=== PATIENT | female | born 1950 | race Caucasian/White ===

== ENCOUNTER 2016-12-23 21:03 | Inpatient (IN) | payer MEDICARE ==
[~2016-12-23] VITALS: Ht 157.5 cm; Wt 63.5 kg
[2016-12-24 00:27] LABS: HEMOGLOBIN 12.1 gm/dl (12.3-15.3); RED BLOOD COUNT 4.23 M/UL (4.00-5.10); WHITE BLOOD COUNT 15.7 K/UL (4.5-11.0)
[2016-12-24 00:46] LABS: BUN/CREATININE RATIO 10 (0-10)
[2016-12-24 08:21] LABS: HEMOGLOBIN 10.7 gm/dl (12.3-15.3); WHITE BLOOD COUNT 15.4 K/UL (4.5-11.0)
[2016-12-24 08:24] LABS: RED BLOOD COUNT 3.74 M/UL (4.00-5.10)
[2016-12-24 08:40] LABS: BUN/CREATININE RATIO 10 (0-10)
[2016-12-25 04:26] LABS: HEMOGLOBIN 9.2 gm/dl (12.3-15.3)
[2016-12-25 04:33] LABS: RED BLOOD COUNT 3.28 M/UL (4.00-5.10); WHITE BLOOD COUNT 11.2 K/UL (4.5-11.0)
[2016-12-25 04:46] LABS: BUN/CREATININE RATIO 17 (0-10)
--- NOTE | 2016-12-26 12:16 | NUR ---
PATIENT WAS UPSET BECAUSE HE HADN'T BEEN ABLE TO EAT SINCE SUNDAY. HE STATED THAT HE WAS NOT IN ANY PAIN AT THIS TIME AND THAT HE COULD SIT ON THE COUCH AT HOME EASY HE COULD HERE. I EXPLAINED TO HIM THE NATURE OF PANCREATITIS AND THAT HE MAY HAVE PAIN WHEN HE EATS, BUT HE WAS INSISTANT THAT HE WAS GOING HOME. I CALLED AND LET HIM KNOW WELL . HE SIGNED HIS AMA PAPERS AND I TOOK HIS IV OUT. HE REFUSED TRANSPORT AND WALKED TO THE [facility].
[2016-12-29 06:27] LABS: BUN/CREATININE RATIO 25 (0-10)
[2016-12-29 08:03] LABS: RED BLOOD COUNT 4.24 M/UL (4.00-5.10); WHITE BLOOD COUNT 11.4 K/UL (4.5-11.0)
[2016-12-29 08:04] LABS: HEMOGLOBIN 12.1 gm/dl (12.3-15.3)
[2016-12-30 06:28] LABS: HEMOGLOBIN 11.9 gm/dl (12.3-15.3); RED BLOOD COUNT 4.17 M/UL (4.00-5.10); WHITE BLOOD COUNT 11.8 K/UL (4.5-11.0)
[2016-12-31] MEDS ORDERED: NO HOME MEDS (17:11)
== END 2016-12-31 17:20 | disposition home or self-care (01) | DRG 871 ==
LOC: ER1 21:03 → ZEROF 12-24 03:00 → M/S 12-24 03:00
PROVIDERS: Family Medicine; Hospitalist; Physician Assistant; ADMIT Internal Medicine
DX: A41.9 Sepsis, unspecified organism (principal); J18.9 Pneumonia, unspecified organism; J96.01 Acute respiratory failure with hypoxia; Z88.1 Allergy status to other antibiotic agents; Z88.2 Allergy status to sulfonamides; J20.9 Acute bronchitis, unspecified
CPT/HCPCS: ECHO; 36415; 36600; 71010; 71020; 80048; 80053; 81001; 82550; 82553; 82803; 83605; 83874; 84443; 84484; 85025; 85027; 85379; 87040; 87081; 87086; 87880; 93005; 93306; 94640; 94664; 96361; 96365; 96375; 99284; J0456; J0696; J1644; J1650; J2550; J2920; J7030; J7050

== ENCOUNTER 2021-04-17 11:27 | Emergency (ER) | payer MEDICARE ==
[~2021-04-17 11:27] MED LIST: NO HOME MEDS
[2021-04-17 12:45] LABS: HEMOGLOBIN 12.3 gm/dl (12.3-15.3); RED BLOOD COUNT 4.36 M/UL (4.00-5.10); WHITE BLOOD COUNT 5.8 K/UL (4.5-11.0)
[2021-04-17 13:10] LABS: BUN/CREATININE RATIO 13 (0-10)
[2021-04-17] MEDS ORDERED: ZOFRAN4 MG PO (15:26)
== END 2021-04-17 16:55 | disposition home or self-care (01) ==
LOC: ER1 11:27
PROVIDERS: Physician Assistant
DX: U07.1 COVID-19 (principal); R53.1 Weakness; Z90.49 Acquired absence of other specified parts of digestive tract; Z90.710 Acquired absence of both cervix and uterus; Z88.1 Allergy status to other antibiotic agents; Z88.2 Allergy status to sulfonamides
CPT/HCPCS: 70450; 71045; 80053; 82550; 82553; 83874; 84484; 85025; 93005; 99284; U0002